=== PATIENT | female | born 1980 | race Two or more races ===

== ENCOUNTER 2019-04-28 20:38 | Emergency (ER) | payer MEDICAID ==
[~2019-04-28] VITALS: Ht 157.5 cm; Wt 45.0 kg
[2019-04-29 03:59] VITALS: BP 103/60
== END 2019-04-29 04:06 | disposition home or self-care (01) ==
LOC: ER 20:38
DX: S50.02XA Contusion of left elbow, initial encounter (principal); Z88.8 Allergy status to other drugs, medicaments and biological substances; X58.XXXA Exposure to other specified factors, initial encounter; Y93.89 Activity, other specified; Y92.013 Bedroom of single-family (private) house as the place of occurrence of the external cause
CPT/HCPCS: 73080; 99283

== ENCOUNTER 2020-02-08 00:12 | Emergency (ER) | payer SELFPAY ==
[~2020-02-08] VITALS: Ht 152.4 cm; Wt 43.0 kg
[2020-02-08 00:51] LABS: HEMATOCRIT. 28.7 % (36.0-48.0); HEMOGLOBIN. 9.2 g/dL (12.0-16.0); MEAN CORPUSCULAR HEMOGLOBIN 19.1 pg (28.0-32.0); MEAN CORPUSCULAR VOLUME 59.4 fL (81.0-99.0); RED BLOOD CELL COUNT 4.83 mill/uL (4.2-5.4); RED CELL DISTRIBUTION WIDTH 20.8 % (11.6-14.6)
[2020-02-08 00:54] LABS: CHLORIDE 98 mEq/L (98-107)
[2020-02-08 00:56] LABS: HCG SCREEN NEGATIVE
[2020-02-08 00:59] LABS: ETHANOL BLOOD < 10 mg/dL
[2020-02-08 02:41] LABS: CLARITY URINE CLOUDY (CLEAR); COLOR URINE YELLOW (YELLOW); KETONES URINE NEGATIVE (NEGATIVE); LEUKOCYTE ESTERASE URINE NEGATIVE (NEGATIVE); NITRITE URINE NEGATIVE (NEGATIVE); OCCULT BLOOD URINE NEGATIVE (NEGATIVE); PH URINE 8.5 (4.5-8.0); PROTEIN URINE 1+ (NEGATIVE); SPECIFIC GRAVITY URINE 1.021 (1.005-1.030)
[2020-02-08 03:02] LABS: *BARBITURATES SCREEN URINE NEGATIVE (NEGATIVE); *BENZODIAZEPINES SCREEN URINE NEGATIVE (NEGATIVE); *COCAINE SCREEN URINE NEGATIVE (NEGATIVE); CANNABINOID URINE SCREEN NEGATIVE (NEGATIVE); METHADONE URINE SCREEN NEGATIVE (NEGATIVE); OPIATES URINE SCREEN NEGATIVE (NEGATIVE)
[2020-02-08 03:03] LABS: PHENCYCLIDINE URINE SCREEN NEGATIVE (NEGATIVE)
[2020-02-08 03:04] LABS: *AMPHETAMINES SCREEN URINE PRESUMTIVE POSITIVE (NEGATIVE)
[2020-02-08 03:43] LABS: PLATELET ESTIMATE NORMAL
[2020-02-08] MEDS ORDERED: METRONIDAZOLE 0.75% VAG GEL 70GM VG STA (03:58)
[2020-02-08] MEDS ORDERED: CEFTRIAXONE SODIUM 250 MG/VIAL IM ONE (04:00)
[2020-02-08] MEDS ORDERED: AZITHROMYCIN 500 MG TABLET PO ONE (04:00)
[2020-02-08 06:00] VITALS: BP 102/76
== END 2020-02-08 06:20 | disposition home or self-care (01) ==
LOC: ER 00:12
DX: T43.621A Poisoning by amphetamines, accidental (unintentional), initial encounter (principal); R10.2 Pelvic and perineal pain; Z20.2 Contact with and (suspected) exposure to infections with a predominantly sexual mode of transmission; Z88.8 Allergy status to other drugs, medicaments and biological substances; Y92.89 Other specified places as the place of occurrence of the external cause
CPT/HCPCS: 36415; 80053; 80305; 80307; 80320; 80329; 81003; 81025; 84703; 85025; 93005; 96372; 99285; J0696; G0480

== ENCOUNTER 2021-05-10 21:24 | Emergency (ER) | payer MEDICAID ==
[~2021-05-10] VITALS: Ht 167.6 cm; Wt 45.0 kg
[2021-05-11 00:40] LABS: HEMATOCRIT. 27.1 % (36.0-48.0); MEAN CORPUSCULAR HEMOGLOBIN 15.9 pg (28.0-32.0); MEAN CORPUSCULAR VOLUME 53.7 fL (81.0-99.0); MEAN PLATELET VOLUME 8.3 fl (7.4-10.4); PLATELET 342 x1000/uL (130-400); RED BLOOD CELL COUNT 5.04 mill/uL (4.2-5.4); RED CELL DISTRIBUTION WIDTH 24.2 % (11.6-14.6)
[2021-05-11 00:47] LABS: CHLORIDE 103 mEq/L (98-107)
[2021-05-11] MEDS ORDERED: LORAZEPAM 2MG/ML CPJ IV STA (01:08)
[2021-05-11] MEDS ORDERED: OLANZAPINE 10 MG/VIAL IM ONE (01:15)
[2021-05-11] MEDS ORDERED: MIDAZOLAM HCL 2 MG/2 ML VIAL IM ONE (01:15)
[2021-05-11] MEDS ORDERED: POTASSIUM CHLORIDE INJ 40 MEQ in DEXT 5% WATER 500 ML IV ONE (01:30)
[2021-05-11] MEDS: KCL 20MEQ/100ML PREMIX 100 ML IV SCH ×2 (03:18→03:19)
[2021-05-11 06:00] VITALS: BP 112/71
[2021-05-11 07:13] LABS: PLATELET ESTIMATE NORMAL
== END 2021-05-11 06:17 | disposition left against medical advice (07) ==
LOC: ER 21:24
DX: F23 Brief psychotic disorder (principal); E87.6 Hypokalemia; D64.9 Anemia, unspecified; M79.10 Myalgia, unspecified site; Z88.8 Allergy status to other drugs, medicaments and biological substances
CPT/HCPCS: 36415; 72170; 80053; 80307; 80329; 85025; 96372; 99284; J2250; J3480; J3490; J2060; J7060

== ENCOUNTER 2021-05-11 07:47 | Emergency (ER) | payer MEDICAID ==
[~2021-05-11] VITALS: Ht 160 cm; Wt 50.0 kg
[2021-05-11] MEDS ORDERED: IBUPROFEN 600MG TABLET PO STA (08:00)
[2021-05-11 08:48] VITALS: BP 115/80
== END 2021-05-11 10:27 | disposition home or self-care (01) ==
LOC: ER 07:47
DX: R05.9 Cough, unspecified (principal); F17.210 Nicotine dependence, cigarettes, uncomplicated; Z88.8 Allergy status to other drugs, medicaments and biological substances
CPT/HCPCS: 71045; 99283